=== PATIENT | female | born 1995 | race Caucasian/White ===

== ENCOUNTER 2018-11-26 13:28 | Inpatient (IN) | payer MEDICAID ==
[2018-11-26 14:52] LABS: ADD UMIC YES; UR AMORPHOUS CRYSTAL MODERATE /HPF (NONE SEEN); UR ASCORBIC ACID NEGATIVE (NEGATIVE); UR BACTERIA FEW /HPF (NONE SEEN); UR BILIRUBIN (Dip) NEGATIVE (NEGATIVE); UR BLOOD (Dip) NEGATIVE (NEGATIVE); UR CLARITY SLIGHTLY CLOUDY (CLEAR); UR COLOR YELLOW (YELLOW); UR GLUCOSE (Dip) NEGATIVE (NEGATIVE); UR KETONES (Dip) NEGATIVE (NEGATIVE); UR LEUKOCYTE ESTERASE (Dip) TRACE Leu/ul (NEGATIVE); UR MUCUS FEW /HPF (NONE SEEN); UR NITRITE (Dip) NEGATIVE (NEGATIVE); UR RBC 0 /HPF (0-5); UR SPECIFIC GRAVITY (Dip) 1.018 (1.003-1.030); UR SQUAMOUS EPITHELIAL CELL FEW /HPF (FEW); UR TOTAL PROTEIN (Dip) NEGATIVE (NEGATIVE); UR UROBILINOGEN (Dip) NEGATIVE (NEGATIVE); UR WBC 2 /HPF (0-5)
[2018-11-26] MEDS ORDERED: OXYCODONE/ASPIRIN (4.88/325) TAB PO (18:30)
[2018-11-26] MEDS ORDERED: CARBOPROST 250 MCG INJ IM (18:30)
[2018-11-26] MEDS ORDERED: METHYLERGONOVINE 0.2 MG INJ IM (18:30)
[2018-11-26] MEDS ORDERED: LIDOCAINE 1% (MPF) 30 ML INJ INJ (18:30)
[2018-11-26] MEDS ORDERED: MISOPROSTOL 200 MCG TAB PR (18:30)
[2018-11-26] MEDS ORDERED: OXYTOCIN 30 UNITS/LR 500 ML IV ×2 (18:30)
[2018-11-26] MEDS ORDERED: IBUPROFEN 600 MG TAB PO (18:30)
[2018-11-26] MEDS: LACTATED RINGER'S 1,000 ML IV ×2 (18:49→21:00)
[2018-11-26 19:01] LABS: ADD MAN DIFF? NO
[2018-11-26 19:04] LABS: WHITE BLOOD COUNT 9.2 10^3/ul (4.8-10.8)
[2018-11-26 19:04] LABS: BASOPHIL # 0.1 10^3/ul (0.0-0.1); BASOPHILS % 0.7 % (0.0-2.0); EOSINOPHILS # 0.2 10^3/ul (0.0-0.5); EOSINOPHILS % 1.8 % (0.0-7.0); HEMATOCRIT 31.3 % (37.0-47.0); LYMPHOCYTES % 22.1 % (15.0-51.0); MEAN CORPUSCULAR HEMOGLOBIN 28.5 pg (29.0-33.0); MEAN CORPUSCULAR HGB CONC 31.9 g/dl (32.0-37.0); MEAN CORPUSCULAR VOLUME 89.2 fl (82.0-101.0); MEAN PLATELET VOLUME 9.3 fl (7.4-10.4); MONOCYTE # 0.5 10^3/ul (0.3-0.9); MONOCYTES % 5.2 % (0.0-11.0); NEUTROPHIL # 6.3 10^3/ul (1.6-7.5); NEUTROPHILS % 68.7 % (39.0-77.0); PLATELET COUNT 255 10^3/UL (140-415); RED BLOOD COUNT 3.51 10^6/ul (4.20-5.40); RED CELL DISTRIBUTION WIDTH 12.8 % (11.5-14.5)
[2018-11-26 19:18] LABS: INR 0.91; PROTIME 12.4 Sec (11.9-14.9)
[2018-11-26 19:19] LABS: PARTIAL THROMBOPLASTIN TIME 24.1 Sec (23.0-35.0)
[2018-11-26 20:07] LABS: AMPHETAMINE/METHAMPHETAMINE Negative (NEGATIVE); BARBITURATES Negative (NEGATIVE); BENZODIAZEPINES Negative (NEGATIVE); CANNABINOIDS Negative (NEGATIVE); COCAINE Negative (NEGATIVE); OPIATES Negative (NEGATIVE)
[2018-11-26] MEDS: ACETAMINOPHEN 325 MG TAB PO (20:09)
[2018-11-26] MEDS: MISOPROSTOL 50 MCG CAPSULE PO (21:00)
[2018-11-26 21:27] LABS: HEPATITIS B SURFACE ANTIGEN NEGATIVE (NEGATIVE)
[2018-11-27] MEDS ORDERED: CLINDAMYCIN 900 MG/D5W (PMX) 50 ML IVPB
[2018-11-27] MEDS: MISOPROSTOL 50 MCG CAPSULE PO ×3 (03:42→14:18)
[2018-11-27] MEDS: LACTATED RINGER'S 1,000 ML IV ×2 (04:41→10:16)
[2018-11-27] MEDS: ACETAMINOPHEN 325 MG TAB PO (08:57)
[2018-11-27] MEDS: BUTORPHANOL 2 MG INJ IV (16:33)
[2018-11-27] MEDS ORDERED: FENTAnyl 2MCG/ML-ROPIV 0.2% 100 ML (17:22)
[2018-11-27] MEDS ORDERED: NALOXONE (0.4 MG/ML) INJ IV (17:30)
[2018-11-27] MEDS ORDERED: ONDANSETRON 4 MG INJ IV ×2 (17:30→18:30)
[2018-11-27] MEDS ORDERED: FENTAnyl 2MCG/ML-ROPIV 0.2% 100 ML BAG EPI (17:30)
[2018-11-27] MEDS: DEXTROSE 5%-LR 1,000 ML IV (18:17)
[2018-11-27] MEDS: LACTATED RINGER'S 1,000 ML IV* (18:17)
[2018-11-27] MEDS ORDERED: ZOLPIDEM 5 MG TAB PO (18:30)
[2018-11-27] MEDS ORDERED: DIPHENHYDRAMINE 50 MG INJ IV (18:30)
[2018-11-27] MEDS ORDERED: ACETAMINOPHEN 325 MG TAB PO (18:30)
[2018-11-27] MEDS ORDERED: MISOPROSTOL 200 MCG TAB PR (18:30)
[2018-11-27] MEDS ORDERED: OXYCODONE/ASPIRIN (4.88/325) TAB PO (18:30)
[2018-11-27] MEDS ORDERED: METHYLERGONOVINE 0.2 MG INJ IM (18:30)
[2018-11-27] MEDS ORDERED: OXYTOCIN 30 UNITS/LR 500 ML IV (18:30)
[2018-11-27] MEDS ORDERED: CARBOPROST 250 MCG INJ IM (18:30)
[2018-11-27] MEDS ORDERED: SENNA/DOCUSATE NA (8.6MG/50MG) TAB PO (18:30)
[2018-11-27] MEDS: OXYTOCIN 30 UNITS/LR 500 ML IV (19:48)
[2018-11-27 20:46] LABS: RAPID PLASMA REAGIN NONREACTIVE (NR)
[2018-11-28] MEDS: IBUPROFEN 600 MG TAB PO ×5 (00:08→23:38)
[2018-11-28] MEDS: LACTATED RINGER'S 1,000 ML IV* (00:08)
[2018-11-28] MEDS: WITCH HAZEL/GLYCERIN PAD PR (00:09)
[2018-11-28] MEDS: DIBUCAINE 1% 30 GM OINT TOP (00:09)
[2018-11-28] MEDS: BENZOCAINE 20% 56 ML SPRAY TOP (00:09)
[2018-11-28] MEDS: LANOLIN HPA 1 PKT TOP (00:09)
[2018-11-28] MEDS: DEXTROSE 5%-LR 1,000 ML IV (02:17)
[2018-11-28 07:25] LABS: ADD MAN DIFF? NO
[2018-11-28 07:30] LABS: BASOPHILS % 0.2 % (0.0-2.0); EOSINOPHILS # 0.1 10^3/ul (0.0-0.5); EOSINOPHILS % 0.8 % (0.0-7.0); HEMATOCRIT 26.6 % (37.0-47.0); HEMOGLOBIN 8.5 g/dl (12.0-16.0); LYMPHOCYTES # 2.2 10^3/ul (0.8-2.9); LYMPHOCYTES % 16.1 % (15.0-51.0); MEAN CORPUSCULAR HEMOGLOBIN 28.7 pg (29.0-33.0); MEAN CORPUSCULAR VOLUME 89.9 fl (82.0-101.0); MEAN PLATELET VOLUME 9.4 fl (7.4-10.4); MONOCYTE # 0.8 10^3/ul (0.3-0.9); MONOCYTES % 5.8 % (0.0-11.0); NEUTROPHIL # 10.4 10^3/ul (1.6-7.5); NEUTROPHILS % 76.3 % (39.0-77.0); PLATELET COUNT 235 10^3/UL (140-415); RED BLOOD COUNT 2.96 10^6/ul (4.20-5.40); RED CELL DISTRIBUTION WIDTH 12.9 % (11.5-14.5)
[2018-11-28 07:30] LABS: WHITE BLOOD COUNT 13.7 10^3/ul (4.8-10.8)
[2018-11-29] MEDS: IBUPROFEN 600 MG TAB PO ×2 (06:03→11:30)
[2018-11-29] MEDS: DIPHTH/TET/ACEL PERTUSS (ADULT) 0.5 ML VIAL IM* (09:00)
[2018-11-29] MEDS: MEASLES,MUMPS,RUBELLA VACCINE INJ SC* (09:00)
== END 2018-11-29 16:35 | disposition home or self-care (01) | DRG 807 ==
LOC: OBT 13:28 → PP1 11-27 19:59 → L-D 13:28 → OBT 18:20 → L-D 18:10
PROC: 10E0XZZ Delivery of Products of Conception, External Approach (ICD-10-PCS; principal; 2018-11-27)
PROC: 3E033VJ Introduction of Other Hormone into Peripheral Vein, Percutaneous Approach (ICD-10-PCS; 2018-11-27)
DX: O48.0 Post-term pregnancy (principal); Z37.0 Single live birth; Z3A.40 40 weeks gestation of pregnancy
CPT/HCPCS: 62319; 76815; 76818; 80307; 81001; 85025; 85610; 85730; 86592; 86850; 86900; 86901; 87340